=== PATIENT | male | born 1960 | race Caucasian/White ===

== ENCOUNTER 2021-09-22 14:58 | Outpatient (REF) | payer BC, SELFPAY ==
--- NOTE | 2021-09-22 16:24 | MHC.AU.ANR ---
Adult Audiological Evaluation Date of Visit: 09/22/21 Reason for Appointment: Audiological evaluation due to concern for decreased hearing and tinnitus. Mr. Vargas notes that he recently began noticing ringing in his right ear. He notes that around the time the ringing began, he has swollen lymph nodes, but his physician didn't find anything wrong. He thinks he may have been having some environmental allergies. Mr. Vargas also notes that his feels he doesn't always hear well. He notes a history of noise exposure related to working in [employer] for 26 years. Does patient feel they have a hearing loss?: Unsure Ear History: Bothersome Tinnitus/Ringing/Noises in Ears: Right Ear History of occupational noise exposure?: Yes: [employer], 26 years Medical History: Medical History: Unremarkable Medical History Otoscopy: Right Ear: Unremarkable Left Ear: Unremarkable Tympanometry: Tympanometry performed due to: To assess integrity of the middle ear system Right Ear: Normal Middle Ear System (Type A) Left Ear: Normal Middle Ear System (Type A) Hearing Evaluation: Transducer(s) Used: Insert Earphones, Bone Conduction Method: Conventional Audiometry Stimuli Used: Pure Tones Right Ear: Description of Hearing: Normal hearing from 250-2000 Hz, steeply sloping to a moderate sensorineural hearing loss at 3000 Hz, a moderately-severe sensorineural hearing loss at 4000 Hz, then rising to a moderate hearing loss at 6000 Hz and a mild hearing loss at 8000 Hz. Hearing in the right ear is worse than the left ear by 35 dBHL at 3000 Hz. Left Ear: Description of Hearing: Normal hearing from 250-3000 Hz, sloping to a moderate sensorineural hearing loss at 4000 Hz, and rising to a mild hearing loss from 8188-9365 Hz. Speech Recognition Threshold (SRT): Method Used: Monitored Live Voice Stimuli Used: Spondee Words Right Ear: 5 dBHL Left Ear: 10 dBHL Word Discrimination: Method: Recorded Lists Word Lists Used: NU-6 Right Ear: 96% at 65 dBHL Left Ear: 100% at 65 dBHL Recommendations: Audiological re-evaluation in one year to monitor hearing, especially due to slight asymmetry noted today. Discussed today's results with Mr. Vargas. He is considered a borderline candidate for hearing aids, though he does not feel he is ready for them at this time. Diagnosis: Primary Diagnosis: H90.3 Bilateral Sensorineural Hearing Loss Secondary Diagnosis: H93.13 Tinnitus, Bilateral Services Performed: Services Performed: Comprehensive Audiological Evaluation (CPT 34982) Tympanometry (CPT 24860) Signature: Provider: Tarun Simpson, CCC-A
== END 2021-09-22 14:59 | disposition home or self-care (01) ==
LOC: HO.SH 14:58
PROVIDERS: Visit Provider Physician Assistant
DX: Z01.118 Encounter for examination of ears and hearing with other abnormal findings (principal); H93.13 Tinnitus, bilateral; H90.3 Sensorineural hearing loss, bilateral
CPT/HCPCS: 92557; 92567